=== PATIENT | female | born 1995 | race Caucasian/White ===

== ENCOUNTER → 2020-05-13 | Outpatient (CLI) | payer OTHER ==
--- NOTE | 2020-05-13 12:45 | US ---
EXAMINATION TYPE: US thyroid st tissue head/neck DATE OF EXAM: 05/13/2020 COMPARISON: CT CLINICAL HISTORY: R22.0 Swelling in neck. Takes thyroid medication; abnl thyroid function tests. GLAND SIZE: Right Lobe: 4.5 x 1.8 x 1.1 cm Overall Parenchyma: homogenous Left Lobe: 4.1 x 16 x 1.2 cm Overall Parenchyma: homogeneous Isthmus Thickness: 0.2 cm NODULES RIGHT: # of nodules measured on right: 0 LEFT: # of nodules measured on left: 0 ISTHMUS: # of nodules measured in the isthmus: 0 Bilateral neck scanned: lymph node seen superior to right thyroid = 2.4 x 2.0 x 0.7cm. Inferior to ri ght thyroid couple of oval hypoechoic nodules (possible lymph node vs. parathyroid nodules seen measu ring approximately = 0.8 x 0.6 x 0.5cm. Inferior to left thyroid is solid hyperechoic oval nodule = 0 .6 x 0.6 x 0.5cm. IMPRESSION: 1. Unremarkable evaluation of the thyroid gland. 2. Hypoechoic nodules lymph nodes versus parathyroid nodules. Correlate clinically.
== END | disposition home or self-care (01) ==
LOC: RADUSWWP 12:02
PROVIDERS: ATTEND Obstetrics & Gynecology
DX: R22.0 Localized swelling, mass and lump, head (principal); R22.1 Localized swelling, mass and lump, neck
CPT/HCPCS: 76536

== ENCOUNTER → 2020-06-03 | Outpatient (CLI) | payer OTHER ==
--- NOTE | 2020-06-03 16:17 | CT ---
EXAMINATION TYPE: CT soft tissue neck w con DATE OF EXAM: 06/03/2020 COMPARISON: None HISTORY: Localized enlarged lymph nodes. Pt bounces between hypo/hyper thyroidism CT DLP: 538.20 mGycm CONTRAST: CT scan of the neck is performed with IV Contrast, patient injected with 80 mL of Isovue 300. Contrast enhanced CT of the neck was performed from the skull base through the lung apices. AIRWAY: The supraglottic, glottic, and subglottic portions of the airway appear patent and free of mass. SALIVARY GLANDS: The submandibular and parotid glands are free of mass or inflammatory process. THYROID GLAND: No nodules or masses seen. LYMPH NODES: Subcentimeter internal jugular chain lymph nodes bilaterally measuring up to 1 cm on the right and up to 9 mm on the left. LUNG APICES: No nodule or mass is seen. OTHER: Vascular structures are patent. No significant degenerative change of the cervical spine. N o abscess seen. IMPRESSION: Subcentimeter internal jugular chain lymph nodes bilaterally measuring up to 1 cm on the right and up to 9 mm on the left.
== END | disposition home or self-care (01) ==
LOC: RADCTMAIN 14:27
PROVIDERS: ATTEND Otolaryngology
DX: R59.0 Localized enlarged lymph nodes (principal); Z88.1 Allergy status to other antibiotic agents
CPT/HCPCS: 82565; 84520; 70491; 36415; Q9967